=== PATIENT | male | born 1950 | race Caucasian/White ===

== ENCOUNTER 2024-04-05 13:54 | Inpatient (IN) | payer OTHER, SELFPAY ==
--- NOTE | ~2024-04-05 | CT_ITS ---
EXAMINATION: CT cervical spine wo con DATE: 04/05/2024 16:49 INDICATION: Neck injury. TECHNIQUE: Computed tomography (CT) of the cervical spine was performed without intravenous contrast. Automated exposure control and iterative reconstruction technique were employed. The dose-length pro duct was 527.85 mGy-cm. COMPARISON: None FINDINGS: There is 4 degrees dextrocurvature of cervical spine. There is 2 mm anterolisthesis of C4 o n C5. There is mild kyphosis of lower cervical spine. Vertebral body heights are normal. There is mil dly decreased disc height at C2-C3 and C4-C5, severely decreased disc height at C5-C6 and C6-C7, and mildly decreased disc height at C7-T1. The following disc levels are specifically discussed: C2-C3: There is moderate bilateral uncovertebral joint osteoarthritis. There is severe bilateral face t joint osteoarthritis. There is mild bilateral neural foraminal stenosis. There is mild central glendy l stenosis. C3-C4: There is mild right and moderate left uncovertebral joint osteoarthritis. There is severe bila teral facet joint osteoarthritis. There is mild bilateral neural foraminal stenosis. There is no cent ral canal stenosis. C4-C5: There is mild right and moderate left uncovertebral joint osteoarthritis. There is severe bila teral facet joint osteoarthritis. There is mild bilateral neural foraminal stenosis. There is mild ce ntral canal stenosis. C5-C6: There is severe bilateral uncovertebral joint osteoarthritis. There is moderate bilateral face t joint osteoarthritis. There is mild right and moderate left neural foraminal stenosis. There is mil d central canal stenosis. C6-C7: There is severe bilateral uncovertebral joint osteoarthritis. There is mild right and moderate left facet joint osteoarthritis. There is mild bilateral neural foraminal stenosis. There is mild ce ntral canal stenosis. C7-T1: There is no uncovertebral joint osteoarthritis. There is severe bilateral facet joint osteoart hritis. There is mild right neural foraminal stenosis. There is no central canal stenosis. IMPRESSION: 1. No fracture. 2. Severe cervical spondylosis. Reviewed, dictated and finalized at location A.
--- NOTE | ~2024-04-05 | XR_ITS ---
EXAMINATION: XR hip LT min 2V DATE: 04/06/2024 16:49 INDICATION: Left hip arthroplasty. Postop. TECHNIQUE: 2 views of left hip were obtained. COMPARISON: Left hip radiographs 04/05/2024 FINDINGS: There is a total left hip arthroplasty in near-anatomic alignment. No fracture. IMPRESSION: 1. Total left hip arthroplasty in near-anatomic alignment. Reviewed, dictated and finalized at location A.
--- NOTE | ~2024-04-05 | XR_ITS ---
XR chest 1V DATE: 04/05/2024 15:17 INDICATION: Left subcapital femoral neck fracture TECHNIQUE: AP chest on 04/05/2024 1509 hours COMPARISON: None FINDINGS: A left dual-lead pacemaker device with leads overlying right atrium and right ventricle. Status post sternotomy and probable coronary artery bypass graft surgery. Heart size appears borderline. No pulmonary infiltrate or consolidation, pleural effusion or pulmonary vascular congestion or pneumo thorax. Surgical clips, right upper quadrant, likely due to cholecystectomy. IMPRESSION: Status post sternotomy and coronary bypass graft surgery Left dual lead pacemaker No active pulmonary disease Reviewed, dictated and finalized at location B.
--- NOTE | ~2024-04-05 | XR_ITS ---
XR hip LT 2V w AP pelvis DATE: 04/05/2024 15:16 INDICATION: Fall. Left hip pain. TECHNIQUE: AP pelvis. AP and crosstable lateral views of the left hip. COMPARISON: None FINDINGS: There is a minimally displaced left subcapital femoral neck fracture. Normal alignment at the hip hip; hip joint spaces appear symmetric and well preserved. Normal alignment at the pubic symphysis and sacral iliac joints. No pelvic fracture or bone destructi on is detected. IMPRESSION: Left subcapital femoral neck fracture Reviewed, dictated and finalized at location B.
--- NOTE | ~2024-04-05 | CT_ITS ---
EXAMINATION: CT brain wo con DATE: 04/05/2024 16:44 INDICATION: Head injury. TECHNIQUE: Computed tomography (CT) of the head was performed without intravenous contrast. The mA wa s adjusted according to patient size. Iterative reconstruction technique was employed. The dose-lengt h product was 681.00 mGy-cm. COMPARISON: None FINDINGS: There is no intracranial hemorrhage, acute infarction, or abnormal intracranial mass lesion . There are scattered areas of low attenuation in the cerebral white matter, which is within normal l imits for the patient's age. The ventricles are normal in size. There is mild mucosal thickening in t he paranasal sinuses. The orbits are normal. There is a trace right mastoid effusion. IMPRESSION: 1. Normal aging brain. Reviewed, dictated and finalized at location A. IMPRESSION: 1. Normal aging brain.
[2024-04-05 13:55] VITALS: BP 169/74; PULSE 66; RESP 18; TEMP 36.3; O2SAT 98
[2024-04-05 15:29] VITALS: BP 160/77; PULSE 60; RESP 18; O2SAT 99
--- NOTE | 2024-04-05 15:34 | ED.FALL ---
HPI - Fall General Chief Complaint: Fall Stated Complaint: fall, hip pain Time Seen by Provider: 04/05/24 15:22 History of Present Illness HPI Narrative: Patient is a 74-year-old male with history of coronary artery disease status post CABG little over year ago at [facility], postprocedural AFib which resolved, here after a fall. Patient notes that just prior to arrival he was out grocery shopping with his . She is disabled after prior stroke and he was helping her off of an electric scooter. They lost her balance and she fell down onto him and he fell down onto his left side. He did believe that he hit his head, does not believe he lost consciousness. He does not use any blood thinners. He noted immediate pain in his left hip. He has been unable to ambulate since that time. He denies any numbness or weakness in his leg. No prior orthopedic surgeries that he is aware of. Currently complaining of significant pain in the left hip which is worse with any subtle movement. Related Data Allergies Allergy/AdvReac Type Severity Reaction Status Date / Time No Known Allergies Allergy Unverified 04/05/24 15:22 Review of Systems Review of Systems: All systems reviewed & are unremarkable except as noted in HPI and below Exam Narrative: GENERAL: Well-appearing, well-nourished, and in no acute distress. HEAD: Normocephalic, atraumatic. EYES: PERRLA and EOMI. ENT: Nares clear. Mucous membranes moist. NECK: Supple. CHEST: Clear to auscultation. No respiratory distress. HEART: Regular rate and rhythm. Normal peripheral pulses. ABDOMEN: Soft, nontender, nondistended. EXTREMITIES: Left lateral hip tenderness, decreased range of motion of the left hip due to pain. Leg rotated outward. No femur, knee, lower leg tenderness. Normal capillary refill, strong DP pulse, normal sensation over foot aside from his pinky toe where he had a prior injury as a child. SKIN: Warm, dry, no rash. NEURO: No focal deficits. Alert and oriented x3. PSYCH: Normal mood and affect. Course Course Emergency Course: Chart review performed. Patient here with left hip pain. Triage vitals show HTN, otherwise normal. No prior visits in our system. Triage imaging performed. CXR shows pacemaker, S/P coronary bypass. Hip XR shows left subcapital femoral neck fracture. Patient seen evaluated, he appears to be neurovascularly intact. He is not on blood thinners. Will do CT head and cervical spine given the fact that he fell and hit his head. Basic lab work, EKG, pain medication ordered. Will discuss case with Orthopedic surgery. Remainder of lab work and imaging reviewed and normal. Spoke with Dr. Castro who advises NPO at midnight, will attempt to do surgery tomorrow. Spoke with Mary from hospitalist service who accepts patient for admission. Vital Signs Vital signs: Vital Signs Temperature 97.4 F L 04/05/24 13:55 Pulse Rate 66 04/05/24 13:55 Respiratory Rate 18 04/05/24 13:55 Blood Pressure 169/74 H 04/05/24 13:55 Pulse Oximetry 98 04/05/24 13:55 Oxygen Delivery Room Air 04/05/24 13:55 Temperature 97.4 F L 04/05/24 13:55 Pulse Rate 60 04/05/24 15:29 Respiratory Rate 18 04/05/24 15:29 Blood Pressure 160/77 H 04/05/24 15:29 Pulse Oximetry 99 04/05/24 15:29 Oxygen Delivery Room Air 04/05/24 13:55 MDM - Fall Lab Data 04/05/24 15:28 04/05/24 16:14 Labs: Lab Results 04/05/24 04/05/24 04/05/24 Range/Units 15:28 15:28 16:14 WBC 6.4 (4.5-10.0) K/mm3 RBC 4.30 L (4.6-6.20) M/mm3 Hgb 13.1 L (14.0-18.0) g/dL Hct 39.6 L (42.0-52.0) % MCV 92.1 (80-100) fl MCH 30.5 (26-34) pg MCHC 33.1 (32-36) g/dl RDW 14.0 (11.5-14.5) % Plt Count 203 (150-375) k/mm3 MPV 11.2 H (7.4-10.4) fl Immature Gran % (Auto) 0.3 (0-0.5) % Neut % (Auto) 69.4 (45.5-73.1) % Lymph % (Auto) 17.1 L (18.3-44.2) % [place] % (Auto) 8.3
[2024-04-05 15:36] LABS: Basophils Absolute Auto 0.1 K/mm3 (0.0-0.1); Basophils Percent Auto 0.8 % (0.2-1.2); Eosinophils Absolute Auto 0.3 K/mm3 (0-0.3); Eosinophils Percent Auto 4.1 % (0-4.4); Hematocrit 39.6 % (42.0-52.0); Hemoglobin 13.1 g/dL (14.0-18.0); Immature Granulocyte Absolute 0.02 K/mm3 (0.00-0.031); Immature Granulocyte Percent A 0.3 % (0-0.5); Lymphocytes Absolute Auto 1.09 K/mm3 (0.9-3.2); Lymphocytes Percent Auto 17.1 % (18.3-44.2); Mean Corpuscular HGB Conc 33.1 g/dl (32-36); Mean Corpuscular Hemoglobin 30.5 pg (26-34); Mean Corpuscular Volume 92.1 fl (80-100); Mean Platelet Volume 11.2 fl (7.4-10.4); Monocytes Absolute Auto 0.5 K/mm3 (0.1-0.6); Monocytes Percent Auto 8.3 % (2.6-8.5); Neutrophils Absolute Auto 4.4 K/mm3 (1.3-6.7); Neutrophils Percent Auto 69.4 % (45.5-73.1); Platelet Count Result 203 k/mm3 (150-375); White Blood Count 6.4 K/mm3 (4.5-10.0)
--- NOTE | 2024-04-05 15:36 | ECG_ITS ---
SEE SCANNED COPY FOR CONFIRMED REPORT MTDD
[2024-04-05] MEDS: ONDANSETRON INJ 4 MG/2 ML VIAL IV PUSH (15:44)
[2024-04-05] MEDS: MORPHINE SULFATE (*CRX) 4 MG/ML INJ IV PUSH (15:44)
[2024-04-05 15:49] LABS: INR 1.1; Prothrombin Time 14.4 Seconds (11.1-14.7)
[2024-04-05 15:50] LABS: Partial Thromboplastin Time 27.8 Seconds (22.3-36.8)
[2024-04-05] MEDS: HYDROmorphone HCL INJ (*CRX) 1 MG/ML SYR IV PUSH ×2 (16:17→18:47)
[2024-04-05 16:40] LABS: Alanine Aminotransferase 25 U/L (6-50); Albumin Level 4.4 g/dL (3.5-5.1); Alkaline Phosphatase 84 U/L (38-126); Anion Gap 8 mmol/L (4-12); Aspartate Amino Transferase 36 U/L (17-59); Bilirubin,Total 1.2 mg/dL (0.2-1.3); Blood Urea Nitrogen 14 mg/dL (9-20); Calcium 9.1 mg/dL (8.4-10.2); Carbon Dioxide 26 mmol/L (22-30); Chloride 103 mmol/L (98-107); Estimated Glomerular Filt Rate > 60; Glucose 132 mg/dL (65-110); Potassium 3.8 mmol/L (3.4-5.0); Sodium 137 mmol/L (137-145)
[2024-04-05 18:43] VITALS: BP 153/68; PULSE 64; RESP 17; TEMP 37.1; O2SAT 98
--- NOTE | 2024-04-05 18:43 | ADMGEN ---
This patient, Pedro Pablo Montes, was admitted to Medical Room 250-01. Patient/family oriented to hospital policies and general routines including ID bracelet, bed and alarms, visiting hours, pain management, procedures, bathroom and other care routines, personal items, smoking policy, room service/diet, and visiting hours. Information on how to activate the Rapid Response Team has been discussed. Patient/Family are encouraged to report perceived risks to care and to ask questions if they do not understand what they are told or what they should do.
[2024-04-05 18:52] VITALS: BMI 28.8
[2024-04-05 19:46] VITALS: BP 149/61; PULSE 61; RESP 18; TEMP 36.3; O2SAT 94; BMI 28.5
[2024-04-05 20:11] LABS: Glucose Point of Care 155 mg/dl (65-105)
--- NOTE | 2024-04-05 20:30 | PM.IMHP ---
H&P: HPI History of Present Illness Date/Time: 04/05/24 23:37 Chief Complaint: Fall Narrative: 74 y/o M presents here with left hip pain with PMH of AFib (s/p Maze procedure), CABG, HTN, pacemaker, DM2, and DM2. Patient presents here via EMS for further evaluation of left hip pain. Patient was at the grocery store when he was assisting his disabled (due to prior stroke) out of her scooter. His lost her balance causing him to fall onto his left side and fell on top of him. Denies LOC, head strike, or syncope. Reports immediate pain to his left hip, worsens with movement, and was unable to ambulate post injury. Denies numbness or tingling to the affected leg. No previous orthopedic surgeries or history of anesthesia reactions. Denies current anticoagulation use. Patient is independent and does not require an assistive device at baseline. Denies any recent chest pain, palpitations, or recent need for nitro. Initial VS at presentation: 97.4? F, HR 66, RR 18, 169/74, and 98% on RA. ED workup showed: No leukocytosis, hemoglobin 13.1, INR 1.1, no significant electrolyte derangements, creatinine 0.6 and normal GFR, glucose 132. Head CT showed normal aging brain. C-spine CT showed no fracture and severe cervical spondylosis. CXR showed status post sternotomy and CABG, left dual lead pacemaker, and no active pulmonary disease. XR of hip and pelvis showed left subcapital femoral neck fracture. Review of Systems Review of Systems: All systems reviewed & are unremarkable except as noted in HPI and below [facility] Past Medical History Medical History (Updated 04/05/24 @ 20:43 by Mary Stallings APRN) Anxiety and depression Atrial fibrillation DM2 (diabetes mellitus, type 2) HTN (hypertension) Inguinal hernia Kidney stones Pacemaker Surgical History Surgical History (Updated 04/05/24 @ 23:54 by Mary Stallings APRN) History of coronary artery bypass graft x 3 (10/2022) History of maze procedure Social History Social History Smoking packs per day: 1.5 Smoking cigarettes per day: 30.0 Years smoked: 5 Smoking pack-years: 7.50 Smoking status: Former smoker Alcohol intake: never Substance use: never Do You Feel Safe in your Home?: Yes Lack of Transportation: No Lack of Food: Never True Current Housing: I Have Housing Concerned About Future Housing: No Difficulty Paying Gas/Electric Bills: No Difficulty Paying for Meds: No Currently Unemployed: No Education: Bachelor's Degree Difficulty w/ Childcare or Family Care: No Spiritual care concerns: No Meds Home Medications and Allergies Home Medications Medication Instructions Recorded Confirmed Type aspirin 81 mg tablet,delayed 81 mg PO DAILY 04/05/24 04/05/24 History release atorvastatin 40 mg tablet 40 mg PO QHS 04/05/24 04/05/24 History fluoxetine 40 mg capsule 40 mg PO DAILY 04/05/24 04/05/24 History lisinopril 20 mg tablet 20 mg PO QHS 04/05/24 04/05/24 History metformin 1,000 mg tablet 500 mg PO BID 04/05/24 04/05/24 History metoprolol tartrate 50 mg tablet 50 mg PO BID 04/05/24 04/05/24 History pioglitazone 15 mg tablet 15 mg PO DAILY 04/05/24 04/05/24 History Allergies Allergy/AdvReac Type Severity Reaction Status Date / Time bee venom protein (honey bee) Allergy Swelling Verified 04/05/24 19:10 Vital Signs Vital Signs - 24 hr 04/05/24 13:55 04/05/24 15:29 04/05/24 18:43 Temperature 97.4 F L 98.7 F Pulse Rate 66 60 64 Respiratory Rate 18 18 17 Blood Pressure 169/74 H 160/77 H 153/68 H Pulse Oximetry 98 99 98 Oxygen Delivery Room Air 04/05/24 19:46 Temperature 97.4 F L Pulse Rate 61 Respiratory Rate 18 Blood Pressure 149/61 H Pulse Oximetry 94 Oxygen Delivery Exam Const: General: no acute distress and uncomfortable Other: , male, elderly, nontoxic appearance HENMT: Face/Nose/Sinus: Normal nares
[2024-04-05 21:06] VITALS: PULSE 61
[2024-04-05] MEDS: ATORVASTATIN 40 MG TABLET PO (21:06)
[2024-04-05] MEDS: lisinopriL 20 MG TABLET PO (21:06)
[2024-04-05] MEDS: METOPROLOL TARTRATE 50 MG TAB PO (21:06)
[2024-04-05] MEDS: HYDROcodone/acetaminophen (*CRX) 10-325 MG TABLET 1 TAB PO (21:53)
[2024-04-05 22:10] LABS: NT Pro B Type Natriuretic Pept 576 pg/mL (19.9-100)
[2024-04-06] VITALS (14 sets, daily range): BP systolic 114–137; BP diastolic 54–78; PULSE 60–83; RESP 12–20; TEMP 36.1–36.8; O2SAT 93–100
[2024-04-06] MEDS: ALPRAZolam (*CRX) 0.25 MG TABLET 0.125 MG PO
[2024-04-06] MEDS: HYDROmorphone HCL INJ (*CRX) 1 MG/ML SYR IV PUSH ×2 (00:17→08:38)
[2024-04-06] MEDS: HYDROcodone/acetaminophen (*CRX) 10-325 MG TABLET 1 TAB PO (04:14)
[2024-04-06 05:01] LABS: Basophils Percent Auto 0.5 % (0.2-1.2); Eosinophils Absolute Auto 0.3 K/mm3 (0-0.3); Eosinophils Percent Auto 5.4 % (0-4.4); Hematocrit 37.1 % (42.0-52.0); Hemoglobin 12.2 g/dL (14.0-18.0); Immature Granulocyte Absolute 0.03 K/mm3 (0.00-0.031); Immature Granulocyte Percent A 0.5 % (0-0.5); Lymphocytes Absolute Auto 1.19 K/mm3 (0.9-3.2); Lymphocytes Percent Auto 19.5 % (18.3-44.2); Mean Corpuscular HGB Conc 32.9 g/dl (32-36); Mean Corpuscular Hemoglobin 30.4 pg (26-34); Mean Corpuscular Volume 92.5 fl (80-100); Mean Platelet Volume 10.3 fl (7.4-10.4); Monocytes Absolute Auto 0.7 K/mm3 (0.1-0.6); Monocytes Percent Auto 11.3 % (2.6-8.5); Neutrophils Absolute Auto 3.8 K/mm3 (1.3-6.7); Neutrophils Percent Auto 62.8 % (45.5-73.1); Platelet Count Result 178 k/mm3 (150-375); Red Blood Count 4.01 M/mm3 (4.6-6.20); Red Cell Distribution Width 13.8 % (11.5-14.5); White Blood Count 6.1 K/mm3 (4.5-10.0)
[2024-04-06 05:06] LABS: Anion Gap 9 mmol/L (4-12); Blood Urea Nitrogen 17 mg/dL (9-20); Calcium 8.5 mg/dL (8.4-10.2); Carbon Dioxide 26 mmol/L (22-30); Chloride 100 mmol/L (98-107); Estimated CRCL calculation 80 ml/min; Estimated Glomerular Filt Rate > 60; Glucose 140 mg/dL (65-110); Potassium 3.8 mmol/L (3.4-5.0); Sodium 135 mmol/L (137-145)
[2024-04-06 05:08] LABS: Hemoglobin A1C 6.6 % (<5.7)
[2024-04-06 08:14] LABS: Glucose Point of Care 141 mg/dl (65-105)
[2024-04-06] MEDS: METOPROLOL TARTRATE 50 MG TAB PO ×2 (08:32→21:03)
[2024-04-06] MEDS: PIOGLITAZONE HCL 15 MG TAB PO (08:32)
[2024-04-06] MEDS: FLUoxetine HCL 20 MG CAPSULE 40 MG PO (08:33)
--- NOTE | 2024-04-06 09:24 | PM.CNOR ---
Assessment and Plan Assessment and plan (1) Femoral neck fracture: Qualifiers: Encounter type: initial encounter Fracture type: closed Laterality: left Qualified Code(s): S72.002A - Fracture of unspecified part of neck of left femur, initial encounter for closed fracture <SANGEETHA Ortiz - Last Filed: 04/06/24 09:24> Code(s): S72.009A - Fracture of unspecified part of neck of unspecified femur, initial encounter for closed fracture <SANGEETHA Ortiz - Last Filed: 04/06/24 09:24> Status: Acute <SANGEETHA Ortiz - Last Filed: 04/06/24 09:24> Assessment and Plan: Displaced left hip femoral neck fracture. Will benefit from total hip arthroplasty. He is a community ambulator. His heart disease and diabetes are well controlled. Proceed with left total hip arthroplasty. We discussed the risks, benefits, and alternatives to surgery. <Huan Castro MD - Last Filed: 04/06/24 12:26> History of Present Illness HPI Consult date: 04/06/24 <SANGEETHA Ortiz - Last Filed: 04/06/24 09:24> 04/06/24 <Huan Castro MD - Last Filed: 04/06/24 12:26> Chief complaint: Hip Fracture <SANGEETHA Ortiz - Last Filed: 04/06/24 09:24> Narrative: Patient complains of acute hip pain. Fell from standing height. His fell on him while he was assisting her and a transfer. Admitted through the emergency room. No previous hip pain. Comfortable at rest. No numbness, tingling, or other associated symptoms. <Huan Castro MD - Last Filed: 04/06/24 12:26> Review of Systems Review of Systems: Denies loss of consciousness. Atrial fibrillation treated. History of CABG <Huan Castro MD - Last Filed: 04/06/24 12:26> All systems reviewed & are unremarkable except as noted in HPI and below <Huan Castro MD - Last Filed: 04/06/24 12:26> [facility] Past Medical History Medical History: Medical History Anxiety and depression Atrial fibrillation DM2 (diabetes mellitus, type 2) HTN (hypertension) Inguinal hernia Kidney stones Pacemaker <SANGEETHA Ortiz - Last Filed: 04/06/24 09:24> Surgical History Surgical History: Surgical History History of coronary artery bypass graft x 3 (10/2022) History of maze procedure <SANGEETHA Ortiz - Last Filed: 04/06/24 09:24> Social History Social History: Social History Smoking packs per day: 1.5 Smoking cigarettes per day: 30.0 Years smoked: 5 Smoking pack-years: 7.50 Smoking status: Former smoker Alcohol intake: never Substance use: never Do You Feel Safe in your Home?: Yes Lack of Transportation: No Lack of Food: Never True Current Housing: I Have Housing Concerned About Future Housing: No Difficulty Paying Gas/Electric Bills: No Difficulty Paying for Meds: No Currently Unemployed: No Education: Bachelor's Degree Difficulty w/ Childcare or Family Care: No Spiritual care concerns: No <SANGEETHA Ortiz - Last Filed: 04/06/24 09:24> Meds Home Medications and Allergies Home medications: Home Medications Medication Instructions Recorded Confirmed Type aspirin 81 mg tablet,delayed 81 mg PO DAILY 04/05/24 04/05/24 History release atorvastatin 40 mg tablet 40 mg PO QHS 04/05/24 04/05/24 History fluoxetine 40 mg capsule 40 mg PO DAILY 04/05/24 04/05/24 History lisinopril 20 mg tablet 20 mg PO QHS 04/05/24 04/05/24 History metformin 1,000 mg tablet 500 mg PO BID 04/05/24 04/05/24 History metoprolol tartrate 50 mg tablet 50 mg PO BID 04/05/24 04/05/24 History pioglitazone 15 mg tablet 15 mg PO DAILY 04/05/24 04/05/24 History <SANGEETHA Ortiz - Last Filed: 04/06/24 09:24> Allergies/Adverse reactions
[2024-04-06] MEDS: oxyCODONE/ACETAMINOPHEN (*CRX) 10-325 MG TABLET 1 TAB PO (12:02)
[2024-04-06 12:11] LABS: Glucose Point of Care 129 mg/dl (65-105)
[2024-04-06] MEDS: TRANEXAMIC ACID 1,000MG/ISO100 1,000 MG/100 ML BAG 200 MG IVPB (13:30)
--- NOTE | 2024-04-06 13:44 | PM.IMPN ---
Progress Note: A&P Assessment and Plan (1) Femoral neck fracture: Qualifiers: Encounter type: initial encounter Fracture type: closed Laterality: left Qualified Code(s): S72.002A - Fracture of unspecified part of neck of left femur, initial encounter for closed fracture Code(s): S72.009A - Fracture of unspecified part of neck of unspecified femur, initial encounter for closed fracture Status: Acute Assessment and Plan: - XR hip and pelvis: Left subcapital femoral neck fracture? - CT of the head/C-spine and CXR no acute fracture bleed - ortho consulted and plan for surgery later this afternoon, 04/06/2024. - pain control as needed - DVT prophylaxis per orthopedic surgeon - PT/OT eval and treat postop - hold home aspirin (2) DM2 (diabetes mellitus, type 2): Qualifiers: Diabetes mellitus terminal makeup operator insulin use: without terminal makeup operator use Diabetes mellitus complication status: without complication Qualified Code(s): E11.9 - Type 2 diabetes mellitus without complications Code(s): E11.9 - Type 2 diabetes mellitus without complications Status: Acute Assessment and Plan: - hypoglycemia protocol - POC blood glucose ACHS - home medication: Metformin held and Actos continued - correct regimen ordered - low dose TIDWM - A1C 6.6 (3) HTN (hypertension): Qualifiers: Hypertension type: unspecified Qualified Code(s): I10 - Essential (primary) hypertension Code(s): I10 - Essential (primary) hypertension Status: Acute Assessment and Plan: - chronic, currently 149/61 - continue home medications: Lisinopril 20 mg q.h.s. and metoprolol 50 mg b.i.d. - monitor Subjective Date/time seen: 04/06/24 13:44 Interval history: Patient's pain is well managed. Plan on surgery later this afternoon at 3:00 a.m.. Patient is very concerned about his due to him being her primary caregiver. Discussed with the patient that PT and OT will evaluate him postoperatively and we can make a safe discharge plan from there. answered all of his questions to the best my ability. Exam Narrative: GENERAL: Comfortable, no acute distress HENMT: moist mucous membranes EYES: EOM intact b/l NECK: no lymphadenopathy RESPIRATORY: clear to auscultation, no increased respiratory effort CARDIO: Regular rate and rhythm GI: soft, nontender, bowel sounds present EXTREMITIES: Minimal bruising over the left hip NEURO: PROM intact, answers questions appropriately, A&O x4 Objective Data Vital Signs Vital Signs: Vital Signs - 24 hr 04/05/24 13:55 04/05/24 15:29 04/05/24 18:43 Temperature 97.4 F L 98.7 F Pulse Rate 66 60 64 Respiratory Rate 18 18 17 Blood Pressure 169/74 H 160/77 H 153/68 H Pulse Oximetry 98 99 98 Oxygen Delivery Room Air 04/05/24 19:46 04/05/24 20:00 04/05/24 21:06 Temperature 97.4 F L Pulse Rate 61 61 Respiratory Rate 18 Blood Pressure 149/61 H Pulse Oximetry 94 Oxygen Delivery Room Air 04/06/24 05:24 04/06/24 08:31 04/06/24 08:32 Temperature 97.9 F Pulse Rate 60 60 60 Respiratory Rate 18 Blood Pressure 114/56 L 117/54 L Pulse Oximetry 95 93 Oxygen Delivery 04/06/24 08:30 Temperature Pulse Rate Respiratory Rate Blood Pressure Pulse Oximetry Oxygen Delivery Room Air Intake/Output Intake/Output: Intake & Output 04/03/24 04/04/24 04/05/24 04/06/24 23:59 23:59 23:59 23:59 Intake Total 0 Output Total 200 Balance -200 0 Meds/Results Medications: Active Medications Generic Name Dose Route Start Last Admin Trade Name Freq PRN Reason Stop Dose Admin Acetaminophen 650 mg 04/05/24 21:40 Acetaminophen 325 Mg Tablet PO Q4H PRN Mild Pain (1-3) or Fever Atorvastatin Calcium 40 mg 04/05/24 21:00 04/05/24 21:06 Atorvastatin 40 Mg Tablet PO 40 mg QHS LIBERTAD Administration Dextrose 12.5 gm 04/05/24 20:46 Dextrose 50% 25 Gm/50
--- NOTE | 2024-04-06 14:08 | WPDANESEPPF ---
Anes - Initial Pre Proc Eval Procedure: Operation Date: 04/06/24 15:00 Proposed Procedures p Left Total Hip Arthroplasty - Huan Castro MD Date/Time: 04/06/24 14:08 Surgeon: Rip Biggs MD Pre Op Diagnosis: Hip Fracture Patient Data Age: 74 Gender: M Height: 1.78 m Weight: 90.1 kg Last Vital Signs Temp 36.6 C 04/06/24 05:24 Pulse 60 04/06/24 08:32 Resp 18 04/06/24 05:24 BP 117/54 L 04/06/24 08:31 Pulse Ox 93 04/06/24 08:31 O2 Del Method Room Air 04/06/24 08:30 Allergies Allergy/AdvReac Type Severity Reaction Status Date / Time bee venom protein (honey bee) Allergy Swelling Verified 04/05/24 19:10 Home Medications Medication Instructions Recorded Confirmed Type aspirin 81 mg tablet,delayed 81 mg PO DAILY 04/05/24 04/05/24 History release atorvastatin 40 mg tablet 40 mg PO QHS 04/05/24 04/05/24 History fluoxetine 40 mg capsule 40 mg PO DAILY 04/05/24 04/05/24 History lisinopril 20 mg tablet 20 mg PO QHS 04/05/24 04/05/24 History metformin 1,000 mg tablet 500 mg PO BID 04/05/24 04/05/24 History metoprolol tartrate 50 mg tablet 50 mg PO BID 04/05/24 04/05/24 History pioglitazone 15 mg tablet 15 mg PO DAILY 04/05/24 04/05/24 History Laboratory Tests 04/05/24 04/05/24 04/05/24 15:28 15:28 16:14 WBC 6.4 K/mm3 (4.5-10.0) RBC 4.30 L M/mm3 (4.6-6.20) Hgb 13.1 L g/dL (14.0-18.0) Hct 39.6 L % (42.0-52.0) MCV 92.1 fl (80-100) MCH 30.5 pg (26-34) MCHC 33.1 g/dl (32-36) RDW 14.0 % (11.5-14.5) Plt Count 203 k/mm3 (150-375) MPV 11.2 H fl (7.4-10.4) Immature Gran % (Auto) 0.3 % (0-0.5) Neut % (Auto) 69.4 % (45.5-73.1) Lymph % (Auto) 17.1 L % (18.3-44.2) [place] % (Auto) 8.3 % (2.6-8.5) Eos % (Auto) 4.1 % (0-4.4) Baso % (Auto) 0.8 % (0.2-1.2) Lymph # (Auto) 1.09 K/mm3 (0.9-3.2) [place] # (Auto) 0.5 K/mm3 (0.1-0.6) Eos # (Auto) 0.3 K/mm3 (0-0.3) Baso # (Auto) 0.1 K/mm3 (0.0-0.1) Abs Immat Gran (auto) 0.02 K/mm3 (0.00-0.031) Absolute Neuts (auto) 4.4 K/mm3 (1.3-6.7) Absolute Nucleated RBC 0.000 K/mm3 (0.0-0.012) Nucleated RBC % 0.0 % (0.0-0.2) PT 14.4 Seconds (11.1-14.7) INR 1.1 APTT Cancelled 27.8 Seconds (22.3-36.8) Sodium 137 mmol/L (137-145) Potassium 3.8 mmol/L (3.4-5.0) Chloride 103 mmol/L (98-107) Carbon Dioxide 26 mmol/L (22-30) Anion Gap 8 mmol/L (4-12) BUN 14 mg/dL (9-20) Creatinine 0.60 L mg/dL (0.7-1.3) Estim Creat Clear Calc Not Reportable Estimated GFR > 60 (59 - ) Glucose 132 H mg/dL (65-110) POC Capillary Glucose Hemoglobin A1c Calcium 9.1 mg/dL (8.4-10.2) Total Bilirubin 1.2 mg/dL (0.2-1.3) AST 36 U/L (17-59) ALT 25 U/L (6-50) Alkaline Phosphatase 84 U/L (38-126) NT-Pro-B Natriuret Pep Total Protein 7.0 g/dL (6.3-8.2) Albumin 4.4 g/dL (3.5-5.1) Blood Type Antibody Screen 04/05/24 04/05/24 04/06/24 20:06 21:44 04:31 WBC 6.1 K/mm3 (4.5-10.0) RBC 4.01 L M/mm3 (4.6-6.20) Hgb 12.2 L g/dL (14.0-18.0) Hct 37.1 L % (42.0-52.0) MCV 92.5 fl (80-100) MCH 30.4 pg (26-34) MCHC 32.9 g/dl (32-36) RDW 13.8 % (11.5-14.5) Plt Count 178 k/mm3 (150-375) MPV 10.3 fl (7.4-10.4) Immature Gran % (Auto) 0.5 % (0-0.5) Neut % (Auto) 62.8 % (45.5-73.1) Lymph % (Auto) 19.5 % (18.3-44.2) [place] % (Auto) 11.3 H % (2.6-8.5) Eos % (Auto)
[2024-04-06 14:14] LABS: Glucose Point of Care 120 mg/dl (65-105)
--- NOTE | 2024-04-06 14:19 | WPDHPUPDATE1 ---
History and Physical Update Update Date/Time: 04/06/24 14:19 History and Physical has been reviewed, including an updated exam of the patient. There are NO changes in the patient's condition. Risks, benefits, and alternatives have been discussed and questions answered. Patient agrees to proceed with procedure.
[2024-04-06] MEDS: LACTATED RINGERS 1,000 ML 30 ML IV CONT ×2 (14:28→16:38)
[2024-04-06] MEDS: ceFAZolin 2 GM/D5W 50 ML 2 GM/50 ML BAG IVPB ×2 (14:30→21:06)
[2024-04-06] MEDS: SODIUM CHLORIDE 0.9% IV 37.7 ML, MORPHINE SULFATE INJ (*CRX) 2 MG, ROPivacaine HCL 1% 2... INFILTRATE (14:58)
--- NOTE | 2024-04-06 17:08 | W.PM.PROC2 ---
Procedure Note - Detailed Date of Procedure 04/06/24 Pre-op Diagnosis Left hip displaced femoral neck fracture Post-op Diagnosis Same Procedure Performed Left Total Hip Arthroplasty Surgeon Huan Castro MD Anesthesia General Findings Excellent bone quality. Description of Procedure The patient was given preoperative antibiotics. A general anesthetic was administered. The patient was carefully placed in the lateral decubitus position on the PEG board. The shoulders and hips were carefully positioned for component and leg length positioning reference. The hip was prepped and draped in the usual sterile fashion. A longitudinal incision was created over the posterior aspect of the greater trochanter. Careful dissection was brought down through the deep fascia with electrocautery. A minimally invasive optimized posterior approach to the hip was performed. The short external rotators and capsule were taken down in an L-shaped capsulotomy. The tissue was tagged for later repair using number 2 high strength suture. The femoral neck was measured and taken in situ. The femoral head was removed. The acetabulum was carefully exposed. The inferior capsule was released. The labrum was resected. The acetabulum was sequentially reamed to the intended cup size. The cup was impacted into position with excellent press-fit. Typical anatomic landmarks, including the bony contact points as well as the inferior transverse acetabular ligament were used to confirm cup positioning with preoperative templating. Attention was turned to the femur, which was carefully exposed. The hip was reamed and then broached sequentially. Excellent press-fit was obtained with the broach. The hip was trialed. Measurements were utilized, including the lesser trochanter as well as the center of the femoral head and the tip of the trochanter, and excellent assessment of the offset and leg lengths were confirmed. The real component was impacted into position. Trialing confirmed appropriate leg length and offset with soft tissue balancing as well apparent feel of the leg, both at the knee and the heel. Soft tissues were assessed using the the iliotibial band. Reduction of the posterior capsule and external rotators were also used as a secondary assessment. The hip was copiously irrigated with pulsatile lavage periodically throughout the procedure. The real components were then assembled and reduced. The hip was stable throughout typical maneuvers, including extension, external rotation to 70 degrees, the position of sleep as well as flexion to 90 degrees with internal rotation past 35 degrees. The shake test confirmed stability without impingement. Osteophytes were removed as necessary. The short external rotators and capsule were repaired back to the posterior trochanter through drill holes. The deep fascia was repaired with running number 2 barbed suture, followed by 2-0 Stratafix suture and 3-0 Stratafix suture in the dermis. Steri-Strips were placed on the skin, followed by a sterile occlusive dressing. There were no complications. Meticulous hemostasis was maintained with the AquaMantys device. The patient was brought to the recovery room in stable condition. There were no complications. Implants The Accolade II hip stem, 132 degree size 4 , was utilized with excellent press-fit. The 54 mm Trident II acetabular component was impacted with excellent press-fit stability. 10 degree elevated polyethylene liner the +2.5, 36 mm Biolox ceramic femoral head was utilized. Estimated Blood Loss 150 Urine Output 200 Drains No Packing No Pathology None sent Complications No immediate complications Condition Stable Disposition PACU [facility] Billing Surgery - Charge Forward: Surgery Billing
[2024-04-06 17:13] LABS: Glucose Point of Care 172 mg/dl (65-105)
[2024-04-06] MEDS: ACETAMINOPHEN 325 MG TABLET 650 MG PO ×2 (17:56→23:30)
[2024-04-06] MEDS: SENNA/DOCUSATE SODIUM TABLET 2 TAB PO (17:57)
[2024-04-06] MEDS: lisinopriL 20 MG TABLET PO (21:03)
[2024-04-06] MEDS: ATORVASTATIN 40 MG TABLET PO (21:03)
[2024-04-06] MEDS: FAMOTIDINE 20 MG TABLET PO (21:03)
[2024-04-06 22:23] LABS: Glucose Point of Care 272 mg/dl (65-105)
[2024-04-07 03:19] VITALS: BP 126/59; PULSE 60; RESP 18; TEMP 37.3; O2SAT 96
[2024-04-07 05:32] VITALS: BP 141/67; PULSE 60; RESP 18; TEMP 36.3; O2SAT 96
[2024-04-07 05:41] LABS: Basophils Percent Auto 0.1 % (0.2-1.2); Eosinophils Percent Auto 0.1 % (0-4.4); Hemoglobin 11.8 g/dL (14.0-18.0); Immature Granulocyte Absolute 0.04 K/mm3 (0.00-0.031); Immature Granulocyte Percent A 0.5 % (0-0.5); Lymphocytes Absolute Auto 0.49 K/mm3 (0.9-3.2); Lymphocytes Percent Auto 6.3 % (18.3-44.2); Mean Corpuscular HGB Conc 32.8 g/dl (32-36); Mean Corpuscular Hemoglobin 30.5 pg (26-34); Mean Platelet Volume 10.4 fl (7.4-10.4); Monocytes Absolute Auto 0.9 K/mm3 (0.1-0.6); Monocytes Percent Auto 11.2 % (2.6-8.5); Neutrophils Absolute Auto 6.4 K/mm3 (1.3-6.7); Neutrophils Percent Auto 81.8 % (45.5-73.1); Platelet Count Result 164 k/mm3 (150-375); Red Blood Count 3.87 M/mm3 (4.6-6.20); Red Cell Distribution Width 13.8 % (11.5-14.5); White Blood Count 7.8 K/mm3 (4.5-10.0)
[2024-04-07 05:50] LABS: Anion Gap 6 mmol/L (4-12); Blood Urea Nitrogen 19 mg/dL (9-20); Calcium 8.7 mg/dL (8.4-10.2); Carbon Dioxide 28 mmol/L (22-30); Chloride 101 mmol/L (98-107); Estimated CRCL calculation 71 ml/min; Estimated Glomerular Filt Rate > 60; Glucose 137 mg/dL (65-110); Sodium 135 mmol/L (137-145)
[2024-04-07] MEDS: ceFAZolin 2 GM/D5W 50 ML 2 GM/50 ML BAG IVPB (05:58)
[2024-04-07] MEDS: ACETAMINOPHEN 325 MG TABLET 650 MG PO (05:58)
--- NOTE | 2024-04-07 08:09 | PM.PNORT ---
Progress Note: A&P Assessment and Plan (1) Status post total hip replacement, left: Code(s): Z96.642 - Presence of left artificial hip joint Status: Acute (2) Femoral neck fracture: Qualifiers: Encounter type: initial encounter Fracture type: closed Laterality: left Qualified Code(s): S72.002A - Fracture of unspecified part of neck of left femur, initial encounter for closed fracture Code(s): S72.009A - Fracture of unspecified part of neck of unspecified femur, initial encounter for closed fracture Status: Acute Plan Postop day 1: Total hip arthroplasty after fracture. Patient tolerated procedure well. No complications. Pain manageable with pain medication. No numbness or tingling. We had a lengthy discussion regarding postoperative wound care, limitations, expectations, and exercises. Patient shows good understanding. Patient has had initial physical therapy and is tolerating it well. Okay for discharge home when patient is cleared medically. DVT prophylaxis: 81 mg baby aspirin b.i.d. for 14 days. Short frequent walks. Pain medication: Percocet. Ibuprofen. Patient will call for followup appointment with Dr. Castro. Subjective Subjective Date/Time Seen: 04/07/24 08:09 Interval history: Patient resting comfortably. No numbness or tingling. No pain. Review of Systems Review of Systems: All systems reviewed & are unremarkable except as noted in HPI and below Exam Narrative: Overweight 74 y/o male. Resting comfortably in bed. Wearing compression socks bilaterally. Dressing dry and intact with no drainage. Moderate swelling. No ecchymosis. No erythema. No hematoma. Range of motion limited due to pain. Calf nontender. Thigh nontender. Neurologic status intact. No varicosities. Distal pulses palpable. Objective Data Vital Signs Vital Signs: Vital Signs - 24 hr 04/06/24 08:31 04/06/24 08:32 04/06/24 08:30 Temperature Pulse Rate 60 60 Respiratory Rate Blood Pressure 117/54 L Pulse Oximetry 93 Oxygen Delivery Room Air Oxygen Flow Rate 04/06/24 16:38 04/06/24 16:50 04/06/24 17:05 Temperature 98.2 F Pulse Rate 83 60 60 Respiratory Rate 12 17 16 Blood Pressure 137/64 134/64 137/63 Pulse Oximetry 99 100 100 Oxygen Delivery Simple Face Mask Simple Face Mask Simple Face Mask Oxygen Flow Rate 8 8 8 04/06/24 17:15 04/06/24 17:25 04/06/24 17:44 Temperature 98.2 F Pulse Rate 60 60 62 Respiratory Rate 20 20 16 Blood Pressure 130/68 136/64 137/59 L Pulse Oximetry 100 100 97 Oxygen Delivery Nasal Cannula Nasal Cannula Oxygen Flow Rate 2 2 04/06/24 18:00 04/06/24 18:30 04/06/24 19:19 Temperature 97.0 F L 98.0 F 98.1 F Pulse Rate 60 60 61 Respiratory Rate 16 17 18 Blood Pressure 128/78 127/58 L 131/62 Pulse Oximetry 96 94 95 Oxygen Delivery Oxygen Flow Rate 04/06/24 21:03 04/06/24 23:19 04/06/24 20:00 Temperature 98.2 F Pulse Rate 61 65 Respiratory Rate 18 Blood Pressure 126/60 Pulse Oximetry 93 Oxygen Delivery Room Air Oxygen Flow Rate 04/07/24 03:19 04/07/24 05:32 Temperature 99.1 F 97.4 F L Pulse Rate 60 60 Respiratory Rate 18 18 Blood Pressure 126/59 L 141/67 H Pulse Oximetry 96 96 Oxygen Delivery Oxygen Flow Rate Intake/Output Intake/Output: Intake & Output 04/04/24 04/05/24 04/06/24 04/07/24 23:59 23:59 23:59 23:59 Intake Total 250 50 Output Total 200 1150 1050 Balance -200 -900 -1000 Meds/Results Medications: Active Medications Generic Name Dose Route Start Last Admin Trade Name Josephq PRN Reason Stop Dose Admin Acetaminophen 650 mg 04/06/24 18:00 04/07/24 05:58 Acetaminophen 325 Mg Tablet PO 650 mg Q6HR LIBERTAD Administration Atorvastatin Calcium 40 mg 04/05/24 21:00 04/06/24 21:03 Atorvastatin 40 Mg Tablet PO 40 mg QHS LIBERTAD Administration Dextrose 12.5 gm 04/05/24 20:46 Dextrose 50% 25 Gm/50 Ml Syringe IV PUS
[2024-04-07 08:31] LABS: Glucose Point of Care 153 mg/dl (65-105)
[2024-04-07 08:42] VITALS: PULSE 62
[2024-04-07] MEDS: PIOGLITAZONE HCL 15 MG TAB PO (08:42)
[2024-04-07] MEDS: SENNA/DOCUSATE SODIUM TABLET 2 TAB PO (08:42)
[2024-04-07] MEDS: FAMOTIDINE 20 MG TABLET PO (08:42)
[2024-04-07] MEDS: METOPROLOL TARTRATE 50 MG TAB PO (08:42)
[2024-04-07] MEDS: FLUoxetine HCL 20 MG CAPSULE 40 MG PO (08:42)
[2024-04-07] MEDS: ENOXAPARIN 40 MG/0.4 ML SYRINGE SUB-Q (08:43)
[2024-04-07] MEDS: oxyCODONE/ACETAMINOPHEN (*CRX) 5-325 MG TABLET 1 TABLET PO (08:43)
[2024-04-07] MEDS: polyethylene glycoL 3350 17 GM POWD.PACK PO (09:00)
[2024-04-07 09:30] VITALS: BP 118/50; PULSE 64; RESP 18; TEMP 36.8; O2SAT 100
[2024-04-07 11:19] VITALS: BP 94/50; PULSE 60; RESP 16; TEMP 36.9; O2SAT 98
--- NOTE | 2024-04-07 11:52 | PM.DS ---
DS: Admitting Diagnosis Discharge Date 04/07/24 Admitting Diagnosis Left hip fracture DS: Discharge Diagnosis Discharge Diagnosis (1) Femoral neck fracture: Qualifiers: Encounter type: initial encounter Fracture type: closed Laterality: left Qualified Code(s): S72.002A - Fracture of unspecified part of neck of left femur, initial encounter for closed fracture Code(s): S72.009A - Fracture of unspecified part of neck of unspecified femur, initial encounter for closed fracture Status: Acute (2) DM2 (diabetes mellitus, type 2): Qualifiers: Diabetes mellitus complication status: without complication Diabetes mellitus medical terminologist insulin use: without medical terminologist use Qualified Code(s): E11.9 - Type 2 diabetes mellitus without complications Code(s): E11.9 - Type 2 diabetes mellitus without complications Status: Acute (3) HTN (hypertension): Qualifiers: Hypertension type: unspecified Qualified Code(s): I10 - Essential (primary) hypertension Code(s): I10 - Essential (primary) hypertension Status: Acute DS: Summary Hospital Course Hospital Course: 74 y/o M presents here with left hip pain with PMH of AFib (s/p Maze procedure), CABG, HTN, pacemaker, DM2, and DM2. Patient presents here via EMS for further evaluation of left hip pain.? Patient was at the grocery store when he was assisting his disabled (due to prior stroke) out of her scooter.? His lost her balance causing him to fall onto his left side and fell on top of him.? Denies LOC, head strike, or syncope.? Reports immediate pain to his left hip, worsens with movement, and was unable to ambulate post injury. Head CT showed normal aging brain.? C-spine CT showed no fracture and severe cervical spondylosis.? CXR showed status post sternotomy and CABG, left dual lead pacemaker, and no active pulmonary disease.? XR of hip and pelvis showed left subcapital femoral neck fracture. Orthopedics consulted. Patient underwent left total hip arthroplasty on 04/06/2024. Postoperatively patient recovered well. PT and OT worked with the patient recommended home health. Due to patient needing to be home with his he will be receiving home health and doing home exercises given to him by Ortho. His pain is well managed. He was cleared to discharge by Ortho. His labs and vital signs are stable and he is medically clear for discharge at this time. Time Spent with Patient Time attestation: Total time spent providing and/or coordinating discharge services: Exam Narrative: GENERAL: Comfortable, no acute distress HENMT: moist mucous membranes EYES: EOM intact b/l NECK: no lymphadenopathy RESPIRATORY: clear to auscultation, no increased respiratory effort CARDIO: Regular rate and rhythm GI: soft, nontender, bowel sounds present EXTREMITIES: Minimal bruising over the left hip, Tegaderm dry and intact. NEURO: PROM intact, answers questions appropriately, A&O x4 DS: Data Data Completed and Pending Labs on day of discharge: Labs from last 24 hours 04/07/24 04/07/24 04/06/24 08:24 05:22 20:48 WBC 7.8 RBC 3.87 L Hgb 11.8 L Hct 36.0 L MCV 93.0 MCH 30.5 MCHC 32.8 RDW 13.8 Plt Count 164 MPV 10.4 Immature Gran % (Auto) 0.5 Neut % (Auto) 81.8 H Lymph % (Auto) 6.3 L [place] % (Auto) 11.2 H Eos % (Auto) 0.1 Baso % (Auto) 0.1 L Lymph # (Auto) 0.49 L [place] # (Auto) 0.9 H Eos # (Auto) 0.0 Baso # (Auto) 0.0 Abs Immat Gran (auto) 0.04 H Absolute Neuts (auto) 6.4 Absolute Nucleated RBC 0.000 Nucleated RBC % 0.0 Sodium 135 L Potassium 4.0 Chloride 101 Carbon Dioxide 28 Anion Gap 6 BUN 19 Creatinine 0.80 Estim Creat Clear Calc 71 Estimated GFR > 60 Glucose 137 H POC Capillary Glucose 153 H 272 H Calcium 8.7 04/06/24 04/06/24 04/06/24 17:11 14:12 12:01 WBC RBC Hgb Hct MC
[2024-04-07 12:27] LABS: Glucose Point of Care 183 mg/dl (65-105)
== END 2024-04-07 14:10 | disposition home health service (06) | DRG 522 ==
LOC: ANHED 15:27 → ANH2MED 17:39
PROVIDERS: Internal Medicine Critical Care Medicine; Orthopaedic Surgery; Physician Assistant Surgical; Student in an Organized Health Care Education/Training Program; Admitting Provider Internal Medicine; Emergency Provider Student in an Organized Health Care Education/Training Program; PCP Internal Medicine; Visit Provider Internal Medicine
PROC: 0SRB04A Replacement of Left Hip Joint with Ceramic on Polyethylene Synthetic Substitute, Uncemented, Open Approach (ICD-10-PCS; CPT 27130; principal; 2024-04-06 15:00)
DX: S72.012A Unspecified intracapsular fracture of left femur, initial encounter for closed fracture (principal); I48.20 Chronic atrial fibrillation, unspecified; I25.10 Atherosclerotic heart disease of native coronary artery without angina pectoris; E11.9 Type 2 diabetes mellitus without complications; F41.9 Anxiety disorder, unspecified; F32.A Depression, unspecified; W19.XXXA Unspecified fall, initial encounter; Z79.82 Long term (current) use of aspirin; Z87.891 Personal history of nicotine dependence; Z95.1 Presence of aortocoronary bypass graft; Z95.0 Presence of cardiac pacemaker
CPT/HCPCS: 36415; 70450; 71045; 72125; 73502; 80048; 80053; 82948; 83036; 83880; 85025; 85610; 85730; 86850; 86900; 86901; 93005; 96374; 96375; 97110; 97161; 97165; 99285; A9270; C1776; J0171; J0690; J1100; J1170; J1650; J1885; J2270; J2405; J2704; J2795; J3010; J7120

== ENCOUNTER 2024-05-22 10:49 | Outpatient (CLI) | payer OTHER, SELFPAY ==
--- NOTE | ~2024-05-22 | XR_ITS ---
XR hip LT 2V w AP pelvis Ordering provider: Huan Castro MD History: . Z47.1, F/U SURGERY ON 04/06/24, NO CURRENT CONCERNS . Comparison: None. FINDINGS: BONES: No acute fracture or dislocation. HIP JOINT SPACES: Left hip arthroplasty. Mild right hip osteoarthritic changes. SACROILIAC JOINT SPACES/LUMBAR SPINE: The sacroiliac joint spaces are normal. Mild degenerative perdomo es of the visualized lower lumbar spine. PUBIC SYMPHYSIS: Normal. SOFT TISSUES: Normal. IMPRESSION: No acute osseous abnormality pelvis and left hip.. Left hip arthroplasty. Reviewed, dictated and finalized at location A.
== END 2024-05-22 10:50 | disposition home or self-care (01) ==
PROVIDERS: PCP Internal Medicine; Visit Provider Orthopaedic Surgery
DX: Z47.1 Aftercare following joint replacement surgery (principal)
CPT/HCPCS: 73502